=== PATIENT | female | born 1960 | race African-American/Black ===

== ENCOUNTER 2018-09-30 18:37 | Emergency (ER) | payer OTHER ==
[2018-09-30 18:53] VITALS: BP 131/61; PULSE 80; TEMP 98.4; BMI 26.6
--- NOTE | 2018-09-30 18:57 | PDOC ---
Rapid Medical Evaluation Medical Evaluation: Allergies Allergy/AdvReac Type Severity Reaction Status Date / Time No Known Allergies Allergy Verified 01/12/16 17:23 09/30/18 18:51 I have performed a brief in-person evaluation of this patient. The patient presents with a chief complaint of:follow up of pilonidal abscess, s /p I&D in UC last week and on bactrim. Given surgery f/u but has not done so yet. 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 H/o IDDM Pertinent physical exam findings:Stable, defer to ED provider I have ordered the following:nothing The patient will proceed to the ED for further evaluation. Discharge Disposition - Diagnosis Wound check, abscess - Referrals - Patient Instructions - Post Discharge Activity
--- NOTE | 2018-09-30 20:28 | PDOC ---
History of Present Illness - General Chief Complaint: Abscess Boil Stated Complaint: CYST Time Seen by Provider: 09/30/18 18:51 History Source: Patient Exam Limitations: No Limitations Past History - Past Medical History Allergies/Adverse Reactions: Allergies Allergy/AdvReac Type Severity Reaction Status Date / Time No Known Allergies Allergy Verified 09/30/18 18:53 Home Medications: Ambulatory Orders Glipizide [Glipizide ER] 10 mg PO DAILY 10/01/13 Sitagliptin Phos/Metformin HCl [Janumet 50-500 mg Tablet] 1 each PO BID Insulin Glargine,Hum.rec.anlog [Hieutatumgabino Chavezaliza] 15 unit SQ DAILY 01/12/16 COPD: No Diabetes: Yes HTN: Yes - Suicide/Smoking/Psychosocial Hx Smoking History: Never smoked Hx Alcohol Use: No Drug/Substance Use Hx: No Substance Use Type: None *Physical Exam - Vital Signs Last Vital Signs Temp Pulse Resp BP Pulse Ox 98.4 F 80 16 131/61 98 09/30/18 18:51 09/30/18 18:51 09/30/18 18:51 09/30/18 18:51 09/30/18 18:51 - Physical Exam General Appearance: No: Apparent Distress Integumentary: positive: Other (site of induration along L inner buttock, pinpoint area (from prior puncture) with serosanguinous drainage, no pustular discharge, no erythema surrounding site, no streaking) Procedures - Incision and Drainage I&D Site: Left: Buttock (along L buttock) Betadine cleansed: Yes Anesthesia: 1% Lidocaine Blade Size: 15 Attempts: 1 Iodinated Packin/2 in Complications: none Medical Decision Making - Medical Decision Making 58 y/o F hx of DM presents with cyst between buttock x 2 weeks. Went to 10 days ago, where she said the person made a hole, but no incision and there was purulent drainage at the time. Patient was placed on Bactrim x 10 days, which she finished. She was advised to f/u with surgeon but has not yet made an appointment. States site has still has bloody discharge; denies noting any purulent drainage. Went to dispute specialist office today who advised her to come to ED to have it evaluated. Denies fever. I&D attempted but mostly serosanguineous discharge Site packed Will refer to surgery 09/30/18 20:24 *DC/Admit/Observation/Transfer Diagnosis at time of Disposition: Wound check, abscess - Discharge Dispostion Disposition: HOME Condition at time of disposition: Stable Decision to Admit order: No - Referrals Referrals: Alex Mills MD [Staff Physician] - 2 Days - Patient Instructions Printed Discharge Instructions: DI for Skin Abscess Additional Instructions: Thank you for choosing [facility]. It was a pleasure taking care of you. You were seen here for abscess The site was packed Keep the packing in place to allow the site to drain Return in 2 days to have site re-evaluated You were also referred to surgeon - please call for follow-up Return to the Emergency Department if your symptoms worsen or persist, you have fever, redness, streaking or other concerning symptoms. - Post Discharge Activity
== END 2018-09-30 20:37 | disposition home or self-care (01) ==
LOC: JER 18:37 → JERFT 18:37
PROC: 0H98XZZ Drainage of Buttock Skin, External Approach (ICD-10-PCS; principal; 2018-09-30)
DX: L05.01 Pilonidal cyst with abscess (principal); E11.9 Type 2 diabetes mellitus without complications; Z79.4 Long term (current) use of insulin; Z79.84 Long term (current) use of oral hypoglycemic drugs; I10 Essential (primary) hypertension
CPT/HCPCS: 99281-25

== ENCOUNTER 2018-10-02 23:28 | Emergency (ER) | payer OTHER ==
[2018-10-02 23:53] VITALS: BP 159/60; PULSE 78; TEMP 97.5; BMI 26.6
--- NOTE | 2018-10-03 01:24 | PDOC ---
History of Present Illness - General Chief Complaint: Pain Stated Complaint: FOLLOW UP VISIT Time Seen by Provider: 10/03/18 00:23 History Source: Patient Exam Limitations: No Limitations - History of Present Illness Initial Comments: 10/03/18 01:15 Patient is a 58 year old female h/o DM, here for wound check. Status post I&D 3 days ago. She was on antibiotics for 10 days prior and has completed the course. Patient has a referral to Dr. Mills. Denies fever, chills, dysuria, nausea, vomiting. PMD: Dr. Ramsey ENDO: Dr. Edison Guerra PSOCHX: neg cig, etoh, durg ALL: NKDA GENERAL/CONSTITUTIONAL: No fever or chills. No weakness. No weight change. HEAD, EYES, EARS, NOSE AND THROAT: No change in vision. No ear pain or discharge. No sore throat. CARDIOVASCULAR: No chest pain or shortness of breath. RESPIRATORY: No cough, wheezing, or hemoptysis. GASTROINTESTINAL: No nausea, vomiting, diarrhea or constipation. No rectal bleeding. GENITOURINARY: No dysuria, frequency, or change in urination. MUSCULOSKELETAL: No joint or muscle swelling or pain. No neck or back pain. SKIN AND BREASTS: No rash or easy bruising. NEUROLOGIC: No headache, vertigo, loss of consciousness, or loss of sensation. PSYCHIATRIC: No depression or anxiety. ENDOCRINE: No increased thirst. No abnormal weight change. HEMATOLOGIC/LYMPHATIC: No anemia, easy bleeding, or history of blood clots. ALLERGIC/IMMUNOLOGIC: No hives or skin allergy. No latex allergy. GENERAL: The patient is awake, alert, and fully oriented, in no acute distress. HEAD: Normal with no signs of trauma. EYES: Pupils equal, round and reactive to light, extraocular movements intact, sclera anicteric, conjunctiva clear. ENT: Moist mucous membranes. NECK: Normal range of motion, LUNGS: Breath sounds equal, clear to auscultation bilaterally. No wheezes, and no crackles. HEART: Regular rate and rhythm, normal S1 and S2 without murmur, rub. ABDOMEN: Soft, nontender, normoactive bowel sounds. No guarding, no rebound. No masses. EXTREMITIES: Normal range of motion, no edema. No clubbing or cyanosis. No cords, erythema, or tenderness. NEUROLOGICAL: Cranial nerves II through XII grossly intact. Normal speech, normal gait. PSYCH: Normal mood, normal affect. SKIN: tender induration mid fissure line buttocks small healing open wound, no discharge, no redness, warm, Dry, normal turgor, Past History - Past Medical History Allergies/Adverse Reactions: Allergies Allergy/AdvReac Type Severity Reaction Status Date / Time No Known Allergies Allergy Verified 10/02/18 23:50 Home Medications: Ambulatory Orders Glipizide [Glipizide ER] 10 mg PO DAILY 10/01/13 Sitagliptin Phos/Metformin HCl [Janumet 50-500 mg Tablet] 1 each PO BID Insulin Glargine,Hum.rec.anlog [Lantus Solostar PEN (NF)] 15 units SQ DAILY 07/23 COPD: No Diabetes: Yes HTN: Yes - Suicide/Smoking/Psychosocial Hx Smoking History: Never smoked Have you smoked in the past 12 months: No Information on smoking cessation initiated: No Hx Alcohol Use: No Drug/Substance Use Hx: No Substance Use Type: None *Physical Exam - Vital Signs Last Vital Signs Temp Pulse Resp BP Pulse Ox 97.5 F L 78 18 159/60 96 10/02/18 23:51 10/02/18 23:51 10/02/18 23:51 10/02/18 23:51 10/02/18 23:51 Medical Decision Making - Medical Decision Making 10/03/18 01:15 Patient is a 58 year old female h/o DM, here for wound check. Status post I&D 3 days ago. She was on antibiotics for 10 days prior and has completed the course. Patient has a referral to Dr. Mills. Denies fever, chills, dysuria, nausea, vomiting. Wound healing well no intervention required at this time.. Instructed patient to continue wound care and sitz baths. I discussed the physical exam findings, ancillary test results and final diagnoses with the patient. I answered all of the patient's questions. The patient was satisfied with the care received and felt comfortable with the discharge plan and treatment plan. The Patient agrees to follow up with the primary care physician within 24-72 hours. *DC/Admit/Observation/Transfer Diagnosis at time of Disposition: Wound check, abscess - Discharge Dispostion Disposition: HOME Condition at time of disposition: Stable - Referrals - Patient Instructions Printed Discharge Instructions: WILD for Skin Abscess Additional Instructions: Your Discharge Instructions: You must call primary care physician within 24 hours to arrange follow-up. Return to the Emergency Department with any new, persistent or worsening symptoms, for fever, chills, SOB, dizziness or any other concerning changes that may occur. Do sitz baths as indicated 20 minutes intervals. If the abscess not resolving follow-up with surgery Dr. Mills. - Post Discharge Activity
== END 2018-10-03 01:39 | disposition home or self-care (01) ==
LOC: JER 23:28
DX: Z48.817 Encounter for surgical aftercare following surgery on the skin and subcutaneous tissue (principal); Z48.01 Encounter for change or removal of surgical wound dressing; I10 Essential (primary) hypertension; E11.9 Type 2 diabetes mellitus without complications; Z79.4 Long term (current) use of insulin
CPT/HCPCS: 99282-25